=== PATIENT | female | born 1945 | race Caucasian/White ===

== ENCOUNTER → 2017-05-05 | Outpatient (CLI) | payer OTHER ==
[~2017-05-05] MED LIST: ACID1TAB7 PO; ASPI-496 PO; CHOL2000 PO; CHOL4POW3 PO; GLIP5TAB10 PO; LISI-170 PO; METF10002 PO; SULF-169 PO
== END | disposition home or self-care (01) ==
LOC: CFH 13:22
PROVIDERS: ATTEND Family Medicine
DX: Z12.31 Encounter for screening mammogram for malignant neoplasm of breast (principal)
CPT/HCPCS: G0202

== ENCOUNTER → 2017-06-10 | Outpatient (CLI) | payer OTHER ==
[~2017-06-10] MED LIST changes: +HYDR25TA6 PO
[2017-06-10 09:51] LABS: HEMATOCRIT 35.3 % (34.6-47.8); HEMOGLOBIN 11.8 g/dL (11.7-16.4)
[2017-06-10 10:07] LABS: BLOOD UREA NITROGEN 27 mg/dL (7-18)
[2017-06-10 10:12] LABS: ASPARTATE AMINO TRANSFERASE 9 U/L (15-37)
== END | disposition home or self-care (01) ==
LOC: STAR 08:15
PROVIDERS: ATTEND Obstetrics & Gynecology Female Pelvic Medicine and Reconstructive Surgery
DX: N81.10 Cystocele, unspecified (principal); N39.3 Stress incontinence (female) (male); R10.2 Pelvic and perineal pain
CPT/HCPCS: 36415; 80053; 85025; 93005

== ENCOUNTER 2017-06-16 08:16 | Observation (INO) | payer OTHER ==
[~2017-06-16] VITALS: Ht 152.4 cm; Wt 87.3 kg
[2017-06-16] MEDS ORDERED: BUPIVACAINE/PF 0.25% ONE (09:07)
[2017-06-16] MEDS ORDERED: EPINEPHRINE 1 MG/ML, 1ML ONE (09:07)
[2017-06-16] MEDS ORDERED: NEOMY/POLYMYXIN B GU IRR. 1 ML IRRIG ONE (09:07)
[2017-06-16] MEDS ORDERED: LIDOCAINE 1%, 2ML ONE (09:30)
[2017-06-16] MEDS ORDERED: LACTATED RINGERS 1,000 ML IV SCH (09:53)
[2017-06-16] MEDS ORDERED: LIDOCAINE 1%, 2ML SQ PRN (10:00)
[2017-06-16] MEDS ORDERED: MIDAZOLAM 1 MG/ML, 2ML ONE (10:16)
[2017-06-16] MEDS ORDERED: FENTANYL PF 250 MCG/5ML ONE (10:16)
[2017-06-16] MEDS ORDERED: ALBUTEROL SULFATE 2.5 MG/3 ML NPPB PRN (11:00)
[2017-06-16] MEDS ORDERED: HYDROmorphone 1 MG/ML, 1ML IV PRN (11:00)
[2017-06-16] MEDS ORDERED: MEPERIDINE/PF 25MG/0.5ML IVPush PRN (11:00)
[2017-06-16] MEDS ORDERED: PROMETHAZINE 25 MG/ML, 1ML IV PRN (11:00)
[2017-06-16] MEDS ORDERED: MIDAZOLAM 1 MG/ML, 2ML IV PRN (11:00)
[2017-06-16] MEDS ORDERED: OXYcodone 5 MG/5 ML ORAL.SOL UDC PO PRN (11:00)
[2017-06-16] MEDS ORDERED: ACETAMINOPHEN 325 MG TABLET PO PRN ×2 (11:00→18:30)
[2017-06-16] MEDS ORDERED: EPHEDRINE 50 MG/ML, 1ML ONE (11:21)
[2017-06-16] MEDS ORDERED: GLYCOPYRROLATE 0.4 MG/2 ML, 2ML ONE (12:13)
[2017-06-16] MEDS ORDERED: ONDANSETRON 2MG/ML, 2ML ONE ×4 (12:14→18:35)
[2017-06-16] MEDS ORDERED: GLYCOPYRROLATE 0.2MG/1ML, 5ML ONE ×2 (12:14)
[2017-06-16] MEDS ORDERED: DEXAMETHASONE 4 MG/ML, 1ML ONE (12:14)
[2017-06-16] MEDS ORDERED: ROCURONIUM 10MG/ML,5ML ONE (12:14)
[2017-06-16] MEDS ORDERED: NEOSTIGMINE 1 MG/ML, 10ML ONE (12:14)
[2017-06-16] MEDS ORDERED: PROPOFOL 10 MG/ML, 20ML ONE ×2 (12:14)
[2017-06-16] MEDS ORDERED: CEFAZOLIN 1,000 MG ONE (12:14)
[2017-06-16] MEDS ORDERED: SUCCINYLCHOLINE 20 MG/ML, 10ML ONE (12:14)
[2017-06-16] MEDS ORDERED: FENTANYL PF 100 MCG/2ML ONE (13:15)
[2017-06-16] MEDS ORDERED: OXYcodone 5 MG/5 ML ORAL.SOL UDC ONE (13:16)
[2017-06-16] MEDS: FENTANYL PF 100 MCG/2ML IV PRN ×2 (13:25→13:40)
[2017-06-16] MEDS ORDERED: MEPERIDINE/PF 25MG/0.5ML ONE (13:41)
[2017-06-16] MEDS ORDERED: HYDROmorphone 2 MG/ML, 1ML ONE (18:15)
[2017-06-16] MEDS ORDERED: HYDROmorphone 2 MG/ML, 1ML IVPush PRN (18:30)
[2017-06-16] MEDS ORDERED: ONDANSETRON 2MG/ML, 2ML IVPush PRN (18:30)
[2017-06-16] MEDS ORDERED: OXYcodone/APAP 5/325MG TABLET PO PRN (18:30)
[2017-06-16] MEDS ORDERED: ZOLPIDEM 5MG TABLET PO PRN (18:30)
[2017-06-16] MEDS ORDERED: HYDROmorphone 2 MG/ML, 1ML IV PRN (20:00)
[2017-06-16] MEDS ORDERED: ACETAMINOPHEN 650 MG SUPP PR PRN (20:00)
[2017-06-16] MEDS: HYDROcodone/APAP 7.5-325MG/15ML UDC PO PRN (20:12)
[2017-06-16] MEDS: IBUPROFEN 600 MG TABLET PO SCH (20:13)
[2017-06-16] MEDS: DOCUSATE 100 MG CAPSULE PO SCH (20:13)
[2017-06-16] MEDS: SIMETHICONE 80 MG CHEW TAB PO SCH (20:13)
[2017-06-16] MEDS: SODIUM CHLORIDE FLUSH 10ML SYR IVF SCH (21:00)
[2017-06-16] MEDS ORDERED: FLURAZEPAM 15 MG CAPSULE PO PRN (21:00)
[2017-06-17 00:36] VITALS: BP 135/72
[2017-06-17 04:05] VITALS: BP 128/66
[2017-06-17] MEDS: HYDROcodone/APAP 7.5-325MG/15ML UDC PO PRN (04:28)
[2017-06-17] MEDS: IBUPROFEN 600 MG TABLET PO SCH (04:28)
[2017-06-17 07:01] VITALS: BP 112/52
[2017-06-17] MEDS ORDERED: metFORMIN 500 MG TABLET PO SCH (08:00)
[2017-06-17] MEDS: SIMETHICONE 80 MG CHEW TAB PO SCH (08:56)
[2017-06-17] MEDS: DOCUSATE 100 MG CAPSULE PO SCH (08:56)
[2017-06-17] MEDS: SODIUM CHLORIDE FLUSH 10ML SYR IVF SCH (08:57)
[2017-06-17] MEDS ORDERED: HYDROCHLOROTHIAZIDE 25 MG TABLET PO SCH (09:00)
[2017-06-17] MEDS ORDERED: LISINOPRIL 20 MG TABLET PO SCH (09:00)
[2017-06-17] MEDS ORDERED: ASPIRIN 81 MG TABLET CHEW PO SCH (09:00)
[2017-06-17] MEDS ORDERED: CHOLECALCIFEROL 1,000 UNIT TABLET PO SCH (09:00)
[2017-06-17] MEDS ORDERED: ONDANSETRON ODT 4 MG PO PRN (10:00)
[2017-06-17] MEDS ORDERED: ONDANSETRON ODT 4 MG ONE (10:01)
[2017-06-17] MEDS ORDERED: IBUP-1222 PO (10:18)
[2017-06-17] MEDS ORDERED: DOCU-131 PO (10:18)
[2017-06-17] MEDS ORDERED: ACET-1757 PO (10:19)
== END 2017-06-17 10:35 | disposition home or self-care (01) ==
LOC: OUT 08:16 → 4NOR 19:28 → INTOOBSV 19:28 → DCLOUNGE 06-17 10:17
PROVIDERS: ADMIT Obstetrics & Gynecology Female Pelvic Medicine and Reconstructive Surgery; ATTEND Obstetrics & Gynecology Female Pelvic Medicine and Reconstructive Surgery
DX: N81.3 Complete uterovaginal prolapse (principal); R10.2 Pelvic and perineal pain; N39.46 Mixed incontinence; E11.9 Type 2 diabetes mellitus without complications; I10 Essential (primary) hypertension; Z90.49 Acquired absence of other specified parts of digestive tract; E66.9 Obesity, unspecified
CPT/HCPCS: 57265; 57282; 57288; 58552; 82962; 88307; C1771; G0378; J0171; J0690; J1100; J1170; J2175; J2250; J2405; J2704; J2710; J3010; J3490; J7120; Q0162; J0330

== ENCOUNTER 2018-08-09 18:10 | Emergency (ER) | payer OTHER ==
[~2018-08-09] VITALS: Ht 152.4 cm; Wt 85.2 kg
[~2018-08-09 18:10] MED LIST changes: +ACET-1757 PO; +DOCU-131 PO; +IBUP-1222 PO; +OMEP-110 PO; +SIMV40TA PO
[2018-08-09 18:12] VITALS: BP 176/61
[2018-08-09 18:55] LABS: BASOPHILS # (AUTO) 0.04 x10^3/uL (0-0.1); BASOPHILS % (AUTO) 1 % (0-1); EOSINOPHILS # (AUTO) 0.15 x10^3/uL (0-0.4); EOSINOPHILS % (AUTO) 2 % (1-7); LYMPHOCYTES # (AUTO) 3.06 x10^3/uL (1-3.4); LYMPHOCYTES % (AUTO) 43 % (22-44); MD NO; MEAN CORPUSCULAR VOLUME 87.9 fL (80-100); MEAN PLATELET VOLUME 9.1 fL (7.4-10.4); MONOCYTES # (AUTO) 0.46 x10^3/uL (0.2-0.8); MONOCYTES % (AUTO) 6 % (2-9); NEUTROPHILS # (AUTO) 3.43 x10^3/uL (1.8-6.8); NEUTROPHILS % (AUTO) 48 % (42-75); PLATELET COUNT 261 x10^3/uL (130-400); RED BLOOD COUNT 4.09 x10^6/uL (3.82-5.3); RED CELL DISTRIBUTION WIDTH 14.6 % (9.6-15.2)
[2018-08-09 18:59] LABS: MICROSCOPIC NOT IND
[2018-08-09 19:01] LABS: INTERNATIONAL NORMALIZED RATIO 0.92 (0.93-1.1); PROTHROMBIN TIME 9.8 Seconds (9.6-11.5)
[2018-08-09 19:02] LABS: CULTURE INDICATED? NO
[2018-08-09 19:04] LABS: ALANINE AMINOTRANSFERASE 27 U/L (12-78); ANION GAP 9 mmol/L (5-15); CALCIUM 9.2 mg/dL (8.5-10.1); CHLORIDE 111 mmol/L (98-107); CREATININE 1.04 mg/dL (0.55-1.02)
[2018-08-09 19:06] LABS: ALKALINE PHOSPHATASE 90 U/L (45-117); BILIRUBIN,TOTAL 0.2 mg/dL (0.2-1.0); TOTAL PROTEIN 7.5 g/dL (6.4-8.2)
== END 2018-08-09 19:48 | disposition home or self-care (01) ==
LOC: ED 19:00
DX: N93.9 Abnormal uterine and vaginal bleeding, unspecified (principal); E11.9 Type 2 diabetes mellitus without complications; I10 Essential (primary) hypertension; E78.5 Hyperlipidemia, unspecified; Z90.710 Acquired absence of both cervix and uterus; Z90.49 Acquired absence of other specified parts of digestive tract
CPT/HCPCS: 36415; 74176; 80053; 81003; 83690; 85025; 85610; 99284

== ENCOUNTER 2018-09-14 13:52 | Inpatient (IN) | payer MEDICARE, OTHER ==
[~2018-09-14] VITALS: Ht 152.4 cm; Wt 90.4 kg
--- NOTE | 2018-09-14 14:16 | NUR ---
Patient BIB EMS for c/o GLF, slip and fall on ice. Patient with c/o pain to R knee, R shoulder and R ankle. IV established by EMS and medicated with 4mg zofran and 100mg fentanyl prior to ER arrival with + improvement. Patient stripped of all wet clothing and replaced with warm blankets. Report to ANNEMARIE Junior.
--- NOTE | 2018-09-14 14:38 | NUR ---
PT GIVEN BLANKET HEATER FOR COMFORT, AGREES TO POC (RESULTS, RECHECK) DENIES NEEDS/CONCERNS AT THIS TIME
--- NOTE | 2018-09-14 15:08 | NUR ---
CHART UP FOR RECHECK, PT TO BE SPLINTED AND ORTHO FOLLOW UP.
--- NOTE | 2018-09-14 15:21 | NUR ---
Note yaelone in EDM - 09/14/18 at 1522 by PRICILA PT REPORTS PERSISTENT NAUSEA, AWARE, PT MEDICATED PER EMAR. GIVEN BLANKET WARMER FOR COMFORT, DELONTE AT BEDSIDE. PT AGREES TO POC (ADMIT)
--- NOTE | 2018-09-14 17:00 | NUR ---
PT UNABLE TO AMBULATE WITH WALKER, AWARE, PT TO BE ADMITTED. DIET TRAY ORDERED PER PT REQUEST. FAMILY AT BEDSIDE.
[2018-09-14 17:31] LABS: BASOPHILS # (AUTO) 0.04 x10^3/uL (0-0.1); BASOPHILS % (AUTO) 1 % (0-1); EOSINOPHILS # (AUTO) 0.19 x10^3/uL (0-0.4); EOSINOPHILS % (AUTO) 3 % (1-7); LYMPHOCYTES # (AUTO) 2.26 x10^3/uL (1-3.4); LYMPHOCYTES % (AUTO) 30 % (22-44); MD NO; MEAN CORPUSCULAR HEMOGLOBIN 29.7 pg (27.0-34.8); MEAN CORPUSCULAR HGB CONC 33.8 g/dL (32.4-35.8); MEAN CORPUSCULAR VOLUME 87.9 fL (80-100); MONOCYTES # (AUTO) 0.37 x10^3/uL (0.2-0.8); MONOCYTES % (AUTO) 5 % (2-9); NEUTROPHILS # (AUTO) 4.61 x10^3/uL (1.8-6.8); NEUTROPHILS % (AUTO) 62 % (42-75); PLATELET COUNT 225 x10^3/uL (130-400); RED CELL DISTRIBUTION WIDTH 14.9 % (9.6-15.2)
[2018-09-14 17:38] LABS: ALBUMIN 3.7 g/dL (3.4-5.0); ANION GAP 4 mmol/L (5-15); CALCIUM 9.3 mg/dL (8.5-10.1); CHLORIDE 112 mmol/L (98-107); CREATININE 0.91 mg/dL (0.55-1.02)
[2018-09-14] MEDS ORDERED: HYDROmorphone 2 MG/ML, 1ML ONE (18:25)
[2018-09-14] MEDS ORDERED: POLYETHYLENE GLYCOL 17 GM PACKET PO PRN (18:30)
[2018-09-14] MEDS ORDERED: BISACODYL 10 MG SUPP PR PRN (18:30)
[2018-09-14] MEDS ORDERED: ACETAMINOPHEN 325 MG TABLET PO PRN (18:30)
[2018-09-14] MEDS: HYDROmorphone 2 MG/ML, 1ML IVPush PRN ×2 (18:34→23:59)
--- NOTE | 2018-09-14 18:35 | NUR ---
PT REPORTS INCREASING PAIN, "ITS STARTING TO THROB REALLY BAD AFTER THE MEDICATION FROM THE AMBULANCE WORE OFF" PT MEDCIATED PER EMAR.
--- NOTE | 2018-09-14 18:36 | NUR ---
DIET TRAY HAS NOT ARRIVED FOR PATIENT, PT GIVEN CRACKERS AND WATER
[2018-09-14] MEDS: ONDANSETRON 2MG/ML, 2ML IVPush PRN (19:11)
[2018-09-14 19:33] LABS: HEMOGLOBIN A1C 8.5 % (4.2-6.3)
[2018-09-14 20:10] VITALS: BP 119/69
[2018-09-14] MEDS: metFORMIN 500 MG TABLET PO SCH (21:00)
[2018-09-14] MEDS: SIMVASTATIN 40 MG TABLET PO SCH (21:00)
[2018-09-14] MEDS: SODIUM CHLORIDE FLUSH 10ML SYR IVF SCH (21:00)
[2018-09-14] MEDS: HEPARIN 5,000 UNITS/ML, 1ML SQ SCH (21:22)
[2018-09-15 03:22] VITALS: BP 100/61
[2018-09-15] MEDS: HEPARIN 5,000 UNITS/ML, 1ML SQ SCH ×3 (05:07→22:58)
[2018-09-15 07:01] VITALS: BP 106/66
[2018-09-15] MEDS: LISINOPRIL 20 MG TABLET PO SCH (09:00)
[2018-09-15] MEDS: SODIUM CHLORIDE FLUSH 10ML SYR IVF SCH ×2 (09:00→22:57)
[2018-09-15] MEDS: CHOLECALCIFEROL 1,000 UNIT TABLET PO SCH (09:00)
[2018-09-15] MEDS: SENNA/DOCUSATE TABLET PO SCH (09:00)
[2018-09-15] MEDS: HYDROCHLOROTHIAZIDE 25 MG TABLET PO SCH (09:00)
[2018-09-15] MEDS: KETOROLAC 30 MG/1 ML IV PRN ×2 (09:21→19:42)
[2018-09-15] MEDS: ASPIRIN 81 MG TABLET EC PO SCH (09:22)
[2018-09-15] MEDS: metFORMIN 500 MG TABLET PO SCH ×2 (09:22→22:56)
[2018-09-15 13:04] VITALS: BP 111/56
[2018-09-15] MEDS: INSULIN LISPRO 100 UNITS/ML, PEN SQ-INSULIN SCH ×2 (16:00→22:58)
[2018-09-15 19:20] VITALS: BP 103/65
[2018-09-15] MEDS: ONDANSETRON 2MG/ML, 2ML IVPush PRN (19:42)
[2018-09-15] MEDS: SIMVASTATIN 40 MG TABLET PO SCH (22:57)
[2018-09-16] MEDS: HYDROmorphone 2 MG/ML, 1ML IVPush PRN ×2 (00:54→06:56)
[2018-09-16 02:00] VITALS: BP 116/72
[2018-09-16 05:20] LABS: BASOPHILS # (AUTO) 0.03 x10^3/uL (0-0.1); BASOPHILS % (AUTO) 1 % (0-1); EOSINOPHILS # (AUTO) 0.17 x10^3/uL (0-0.4); EOSINOPHILS % (AUTO) 3 % (1-7); LYMPHOCYTES # (AUTO) 2.78 x10^3/uL (1-3.4); LYMPHOCYTES % (AUTO) 49 % (22-44); MD NO; MEAN CORPUSCULAR HEMOGLOBIN 29.4 pg (27.0-34.8); MEAN CORPUSCULAR HGB CONC 33.1 g/dL (32.4-35.8); MEAN PLATELET VOLUME 9.2 fL (7.4-10.4); MONOCYTES # (AUTO) 0.43 x10^3/uL (0.2-0.8); MONOCYTES % (AUTO) 8 % (2-9); NEUTROPHILS # (AUTO) 2.25 x10^3/uL (1.8-6.8); NEUTROPHILS % (AUTO) 40 % (42-75); PLATELET COUNT 192 x10^3/uL (130-400); RED BLOOD COUNT 3.55 x10^6/uL (3.82-5.3); RED CELL DISTRIBUTION WIDTH 15.2 % (9.6-15.2)
[2018-09-16 05:31] LABS: ANION GAP 0 mmol/L (5-15); CALCIUM 8.7 mg/dL (8.5-10.1); CHLORIDE 112 mmol/L (98-107)
[2018-09-16 05:34] LABS: CREATININE 1.14 mg/dL (0.55-1.02)
[2018-09-16] MEDS: HEPARIN 5,000 UNITS/ML, 1ML SQ SCH ×3 (05:48→21:59)
[2018-09-16 06:47] VITALS: BP 100/58
[2018-09-16] MEDS: ONDANSETRON 2MG/ML, 2ML IVPush PRN ×2 (06:56→13:21)
[2018-09-16] MEDS: INSULIN LISPRO 100 UNITS/ML, PEN SQ-INSULIN SCH ×4 (07:00→22:00)
[2018-09-16] MEDS: LISINOPRIL 20 MG TABLET PO SCH (09:00)
[2018-09-16] MEDS: HYDROCHLOROTHIAZIDE 25 MG TABLET PO SCH (09:00)
[2018-09-16] MEDS: ASPIRIN 81 MG TABLET EC PO SCH (10:08)
[2018-09-16] MEDS: metFORMIN 500 MG TABLET PO SCH ×2 (10:08→17:38)
[2018-09-16] MEDS: SODIUM CHLORIDE FLUSH 10ML SYR IVF SCH ×2 (10:08→22:49)
[2018-09-16] MEDS: CHOLECALCIFEROL 1,000 UNIT TABLET PO SCH (10:10)
[2018-09-16] MEDS: SENNA/DOCUSATE TABLET PO SCH (10:10)
[2018-09-16 13:01] VITALS: BP 128/54
[2018-09-16] MEDS: OXYcodone IR 5MG TABLET PO PRN ×2 (13:21→21:59)
[2018-09-16] MEDS: SODIUM CHLORIDE 0.9% 1,000 ML IV SCH (16:32)
[2018-09-16 21:45] VITALS: BP 110/65
[2018-09-16] MEDS: SIMVASTATIN 40 MG TABLET PO SCH (21:59)
[2018-09-17 03:18] VITALS: BP 124/46
[2018-09-17 05:51] LABS: BASOPHILS # (AUTO) 0.03 x10^3/uL (0-0.1); BASOPHILS % (AUTO) 1 % (0-1); EOSINOPHILS # (AUTO) 0.21 x10^3/uL (0-0.4); EOSINOPHILS % (AUTO) 4 % (1-7); LYMPHOCYTES # (AUTO) 2.55 x10^3/uL (1-3.4); LYMPHOCYTES % (AUTO) 43 % (22-44); MD NO; MEAN CORPUSCULAR HEMOGLOBIN 29.4 pg (27.0-34.8); MEAN CORPUSCULAR HGB CONC 33.3 g/dL (32.4-35.8); MEAN CORPUSCULAR VOLUME 88.3 fL (80-100); MEAN PLATELET VOLUME 9.2 fL (7.4-10.4); MONOCYTES # (AUTO) 0.45 x10^3/uL (0.2-0.8); MONOCYTES % (AUTO) 8 % (2-9); NEUTROPHILS # (AUTO) 2.68 x10^3/uL (1.8-6.8); NEUTROPHILS % (AUTO) 45 % (42-75); PLATELET COUNT 190 x10^3/uL (130-400); RED BLOOD COUNT 3.47 x10^6/uL (3.82-5.3); RED CELL DISTRIBUTION WIDTH 14.8 % (9.6-15.2)
[2018-09-17] MEDS: HEPARIN 5,000 UNITS/ML, 1ML SQ SCH ×3 (06:00→21:50)
[2018-09-17 06:07] LABS: CHLORIDE 111 mmol/L (98-107)
[2018-09-17 06:18] LABS: ANION GAP 8 mmol/L (5-15); CALCIUM 8.7 mg/dL (8.5-10.1); CREATININE 1.04 mg/dL (0.55-1.02)
[2018-09-17] MEDS: OXYcodone IR 5MG TABLET PO PRN ×2 (06:36→21:50)
[2018-09-17] MEDS: INSULIN LISPRO 100 UNITS/ML, PEN SQ-INSULIN SCH ×4 (07:00→21:00)
[2018-09-17] MEDS: SODIUM CHLORIDE 0.9% 1,000 ML IV SCH ×2 (08:10→22:50)
[2018-09-17] MEDS: SODIUM CHLORIDE FLUSH 10ML SYR IVF SCH ×2 (08:10→21:00)
[2018-09-17] MEDS: SENNA/DOCUSATE TABLET PO SCH (08:11)
[2018-09-17] MEDS: metFORMIN 500 MG TABLET PO SCH ×2 (08:11→21:50)
[2018-09-17] MEDS: ASPIRIN 81 MG TABLET EC PO SCH (08:11)
[2018-09-17 08:15] VITALS: BP 139/50
[2018-09-17] MEDS: ONDANSETRON 2MG/ML, 2ML IVPush PRN (10:19)
[2018-09-17] MEDS: HYDROCHLOROTHIAZIDE 25 MG TABLET PO SCH (10:24)
[2018-09-17] MEDS: LISINOPRIL 20 MG TABLET PO SCH (10:25)
[2018-09-17 13:35] VITALS: BP 135/57
[2018-09-17 19:27] VITALS: BP 143/59
[2018-09-17] MEDS: CHOLECALCIFEROL 1,000 UNIT TABLET PO SCH (20:28)
[2018-09-17] MEDS: SIMVASTATIN 40 MG TABLET PO SCH (20:28)
[2018-09-18 00:58] VITALS: BP 106/57
[2018-09-18] MEDS: HYDROmorphone 2 MG/ML, 1ML IVPush PRN (01:49)
[2018-09-18] MEDS: ONDANSETRON 2MG/ML, 2ML IVPush PRN ×2 (01:49→13:21)
[2018-09-18 04:32] LABS: BASOPHILS # (AUTO) 0.05 x10^3/uL (0-0.1); BASOPHILS % (AUTO) 1 % (0-1); EOSINOPHILS # (AUTO) 0.28 x10^3/uL (0-0.4); EOSINOPHILS % (AUTO) 4 % (1-7); LYMPHOCYTES # (AUTO) 3.61 x10^3/uL (1-3.4); LYMPHOCYTES % (AUTO) 45 % (22-44); MD NO; MEAN CORPUSCULAR HEMOGLOBIN 29.4 pg (27.0-34.8); MEAN CORPUSCULAR HGB CONC 33.4 g/dL (32.4-35.8); MEAN CORPUSCULAR VOLUME 88.1 fL (80-100); MEAN PLATELET VOLUME 9.3 fL (7.4-10.4); MONOCYTES # (AUTO) 0.61 x10^3/uL (0.2-0.8); MONOCYTES % (AUTO) 8 % (2-9); NEUTROPHILS # (AUTO) 3.55 x10^3/uL (1.8-6.8); NEUTROPHILS % (AUTO) 44 % (42-75); PLATELET COUNT 199 x10^3/uL (130-400); RED BLOOD COUNT 3.45 x10^6/uL (3.82-5.3)
[2018-09-18 04:38] LABS: ANION GAP 6 mmol/L (5-15); CALCIUM 8.4 mg/dL (8.5-10.1); CHLORIDE 111 mmol/L (98-107); CREATININE 0.86 mg/dL (0.55-1.02)
[2018-09-18] MEDS: HEPARIN 5,000 UNITS/ML, 1ML SQ SCH ×2 (06:15→14:00)
[2018-09-18] MEDS: INSULIN LISPRO 100 UNITS/ML, PEN SQ-INSULIN SCH ×2 (06:19→11:00)
[2018-09-18 07:29] VITALS: BP 119/53
[2018-09-18] MEDS: metFORMIN 500 MG TABLET PO SCH (08:05)
[2018-09-18] MEDS: ASPIRIN 81 MG TABLET EC PO SCH (08:05)
[2018-09-18] MEDS: SODIUM CHLORIDE FLUSH 10ML SYR IVF SCH (08:05)
[2018-09-18] MEDS: OXYcodone IR 5MG TABLET PO PRN (08:06)
[2018-09-18] MEDS: HYDROCHLOROTHIAZIDE 25 MG TABLET PO SCH (08:06)
[2018-09-18] MEDS: LISINOPRIL 20 MG TABLET PO SCH (08:06)
[2018-09-18] MEDS: SENNA/DOCUSATE TABLET PO SCH (08:23)
[2018-09-18] MEDS ORDERED: INSU100I11 SQ-INSULIN (10:36)
[2018-09-18] MEDS ORDERED: HEPA50002 SQ (10:36)
[2018-09-18] MEDS ORDERED: SENN1TAB8 PO (10:36)
[2018-09-18] MEDS ORDERED: OXYC5TAB3 PO (10:36)
[2018-09-18] MEDS: SODIUM CHLORIDE 0.9% 1,000 ML IV SCH (11:07)
[2018-09-18 12:55] VITALS: BP 135/73
== END 2018-09-18 15:54 | DRG 543 ==
LOC: ED 14:18 → EDIP 16:56 → 4NOR 18:47
PROVIDERS: ADMIT Hospitalist; ATTEND Hospitalist
PROC: 2W3LX1Z Immobilization of Right Lower Extremity using Splint (ICD-10-PCS; principal; 2018-09-14)
DX: M80.061A Age-related osteoporosis with current pathological fracture, right lower leg, initial encounter for fracture (principal); N17.9 Acute kidney failure, unspecified; R00.1 Bradycardia, unspecified; D64.9 Anemia, unspecified; I10 Essential (primary) hypertension; R32 Unspecified urinary incontinence; E11.9 Type 2 diabetes mellitus without complications; Z79.84 Long term (current) use of oral hypoglycemic drugs; W00.0XXA Fall on same level due to ice and snow, initial encounter; Y93.89 Activity, other specified; Y92.89 Other specified places as the place of occurrence of the external cause; Y99.8 Other external cause status; G89.29 Other chronic pain; M54.9 Dorsalgia, unspecified; Z82.49 Family history of ischemic heart disease and other diseases of the circulatory system; E78.5 Hyperlipidemia, unspecified; Z90.710 Acquired absence of both cervix and uterus; Z90.49 Acquired absence of other specified parts of digestive tract; Z88.5 Allergy status to narcotic agent
CPT/HCPCS: 36415; 80048; 82040; 82962; 83036; 85025; 96374; G0378; J1170; J1644; J1885; J2405; J1815; J7030

== ENCOUNTER → 2018-12-02 | Outpatient (CLI) | payer MEDICARE ==
[~2018-12-02] MED LIST changes: +HEPA50002 SQ; +INSU100I11 SQ-INSULIN; +OXYC5TAB3 PO; +SENN-177 PO
== END | disposition home or self-care (01) ==
LOC: CFH 10:41
PROVIDERS: ATTEND Family Medicine
DX: Z13.820 Encounter for screening for osteoporosis (principal); M85.88 Other specified disorders of bone density and structure, other site; Z87.81 Personal history of (healed) traumatic fracture
CPT/HCPCS: 77080

== ENCOUNTER → 2020-06-28 | Outpatient (CLI) | payer MEDICARE ==
[~2020-06-28] MED LIST changes: -ACET-1757 PO; +ACET-2065 PO
== END | disposition home or self-care (01) ==
LOC: CFH 14:33
PROVIDERS: ATTEND Family Medicine
DX: Z12.31 Encounter for screening mammogram for malignant neoplasm of breast (principal)
CPT/HCPCS: 77067